=== PATIENT | male | born 1930 | race Caucasian/White ===

== ENCOUNTER 2017-10-03 08:39 | Emergency (ER) | payer OTHER, MEDICARE ==
[~2017-10-03] VITALS: Ht 182.9 cm; Wt 91.1 kg
[~2017-10-03 08:39] MED LIST: ACT30 PO; ASPI-435 PO; CYAN100020 PO; GLC850 PO; HYDR-5688 PO; MAGN1TAB41 PO; NTRGSLP4 SL; SENNTAB23 PO; TAMS0.4C38 PO; Vitamin B12 IM; ZCRT/40 PO; [UNRECOGNIZED DRUG - REMARK] PO
[2017-10-03 08:49] VITALS: TEMP 36.7; Ht 182.9 cm; Wt 91.1 kg
[2017-10-03] MEDS ORDERED: SODIUM CHLORIDE 0.9% 500ML 500 ML IV STA (08:58)
--- NOTE | 2017-10-03 09:03 | EMERGENCY ROOM VISIT NOTE ---
History Report prepared by Lex: Eneida Calvert Under the Supervision of: Dr. Antoni Fuller M.D. First contact with patient: 08:44 Chief Complaint: HEMATURIA Stated Complaint: HEAMTURIA History of Present Illness The patient is an 87 year old male who presents to the Emergency Room with complaints of persistent hematuria. He was brought to the ED via EMS from [facility] [place] in [facility]. Per EMS, he has a history of dementia and complained of abdomen and groin pain upon EMS arrival. He denies these complaints in the ED but states he has low back pain. EMS [facility] 2x for UTI and hematruia symptoms over the past few weeks and is currently being treated for a UTI. He has a history of prostate cancer in 2010 and per nursing at [facility], was pulling on his Mcneil overnight as he has a history of dementia. The patient has an upcoming appointment with Dr. Rachel of [facility]. The patient states he cannot remember how long the Mcneil has been in place. He denies any recent fevers, chills, cough or congestion. 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 A total of ten systems were reviewed and were otherwise negative. Past Medical & Surgical Medical Problems: (1) Acid reflux (2) B12 deficiency anemia (3) Diabetes mellitus, type 2 (4) Hypercholesterolemia (5) Memory loss (6) Prostate cancer Surgical Problems: (1) H/O cervical spine surgery (2) H/O right inguinal hernia repair (3) History of lumbar surgery (4) History of tonsillectomy and adenoidectomy Social History Smoking Status: Former Smoker Alcohol Use: none Drug Use: none Marital Status: Housing Status: longterm Occupation Status: retired Current/Historical Medications Scheduled Aspirin (Aspirin 81), 81 MG PO DAILY Cefuroxime Axetil (Ceftin), 250 MG PO BID Cyanocobalamin (Vitamin B12), 1,000 MCG PO DAILY Fentanyl (Fentanyl), 12 MG TD [id number] Finasteride (Proscar), 5 MG PO DAILY Lorazepam (Ativan), 0.5 MG PO BID Magnesium Oxide (Magnesium), 400 MG PO DAILY Memantine (Namenda), 10 MG PO BID Metformin HCl (Metformin HCl), 850 MG PO BID Pioglitazone (Actos), 30 MG PO DAILY Quetiapine Fumarate (Seroquel), 12.5 MG PO QPM Rivastigmine Tartrate (Rivastigmine Tartrate), 6 MG PO BID Simvastatin (Zocor), 40 MG PO HS Tamsulosin Hcl (Flomax), 0.4 MG PO DAILY Scheduled PRN Carboxymethylcellulose Sodium (Refresh), 1 DROP OP UD PRN for DRYNESS Hydrocodone/Acetaminophen 5MG/325MG ([place] 5MG/325MG), 1 TABLET PO Q4H PRN for Pain Nitroglycerin (Nitrostat), 1 TAB SL UD PRN for CHEST PAIN Triamcinolone Acet (Aristocort 0.1%), 1 APPLN TOP BID PRN for ITCHING Allergies Coded Allergies: Amoxicillin (Unverified Allergy, Unknown, nausea, 10/03/17) Clavulanic Acid (Unverified Allergy, Unknown, nausea, 10/03/17) Donepezil (Unverified Allergy, Unknown, , 10/03/17) Esomeprazole (Unverified Allergy, Unknown, , 10/03/17) Lovastatin (Unverified Allergy, Unknown, myalgia, 10/03/17) Pollen Extract (Unverified Allergy, Unknown, wheezing, 10/03/17) Rosuvastatin (Unverified Allergy, Unknown, myalgia, 10/03/17) Physical Exam Vital Signs Date Time Temp Pulse Resp B/P (MAP) Pulse Ox O2 Delivery O2 Flow Rate FiO2 10/03/17 13:26 75 18 150/75 94 10/03/17 11:30 84 18 160/73 96 Room Air 10/03/17 09:57 90 18 138/78 95 Room Air 10/03/17 09:09 85 10/03/17 08:49 36.7 83 18 162/76 97 Room Air Physical Exam GENERAL: Awake, alert, pleasantly demented, in no distress HENT: Normocephalic, atraumatic. Oropharynx unremarkable. Dry mucous membranes. EYES: Normal conjunctiva. Sclera non-icteric. NECK: Supple. No nuchal rigidity. FROM. No JVD. RESPIRATORY: Clear to auscultation. CARDIAC: Regular rate, normal rhythm. Extremities warm and well perfused. Pulses equal. ABDOMEN: Soft, non-distended. No tenderness to palpation. No rebound or guarding. No masses. : Indwelling Mcneil catheter draining light red urine output. RECTAL: Deferred. MUSCULOSKELETAL: Chest examination reveals no tenderness. The back is symmetrical on inspection without obvious abnormality. There is no CVA tenderness to palpation. No joint edema. LOWER EXTREMITIES: Calves are equal size bilaterally and non-tender. No edema. No discoloration. NEURO: Normal sensorium. No sensory or motor deficits noted. SKIN: No rash or jaundice noted. Medical Decision & Procedures ER Provider Diagnostic Interpretation: Radiology results as stated below per my review and radiologist interpretation: CT OF THE ABDOMEN AND PELVIS WITH CONTRAST CLINICAL HISTORY: Hematuria. COMPARISON STUDY: None. TECHNIQUE: Following IV administration of 93 mL of Optiray-320, axial images of the abdomen and pelvis were obtained from the lung bases to the proximal femurs. Images were reviewed in the axial, sagittal, and coronal planes. IV contrast was administered without complication. A dose lowering technique was utilized adhering to the principles of ALARA. CT DOSE: 524.14 mGy.cm FINDINGS: Visualized portions of the lower chest demonstrate mild cardiomegaly. The liver, spleen, adrenal glands are unremarkable. There is mild renal cortical thinning. There is no hydronephrosis. A Mcneil balloon is present within the bladder which is classic. Bladder wall thickening is accentuated given collapse. There is a possible 2 mm left renal calculus. This exam is compromised by motion artifact. No ureteral calculi are identified. Note is made of a 1.9 cm cystic lesion within the pancreatic neck. There may be an adjacent smaller 9 mm cystic lesion is well. There is no pancreatic ductal or biliary ductal dilatation. No enlarged abdominal or pelvic lymph nodes are present. There is no evidence for a bowel obstruction. There is mild perirectal infiltration, a nonspecific finding. The appendix is normal. No suspicious osseous lesions are present. Fat-containing bilateral inguinal hernias are noted. Sensitivity for detection of urothelial lesions is diminished on this unenhanced study. Brachytherapy seeds within the prostate are noted. IMPRESSION: 1. Mild bladder wall thickening which is accentuated by underdistention no hydronephrosis. 2. Possible 2 mm left renal calculus. Study compromised by motion artifact. No ureteral calculi. 3. Bilobed cystic lesion within the pancreatic neck. This is indeterminate but favors a side branch IPMN. This could be correlated with prior imaging studies if available. If not available, a follow-up pancreatic protocol CT in 6 months is recommended. 4. No bowel obstruction. 5. Mild perirectal infiltration, a nonspecific finding. Electronically signed by: Hal Jaquez M.D. 10/03/2017 10:56 AM Laboratory Results 10/03/17 09:50 Red Blood Count 2.87, Mean Corpuscular Volume 105.2, Mean Corpuscular Hemoglobin 34.5, Mean Corpuscular Hemoglobin Concent 32.8, Mean Platelet Volume 8.1, Neutrophils (%) (Auto) 76.2, Lymphocytes (%) (Auto) 15.4, Monocytes (%) ( Auto) 5.6, Eosinophils (%) (Auto) 2.6, Basophils (%) (Auto) 0.1, Neutrophils # ( Auto) 5.20, Lymphocytes # (Auto) 1.05, Monocytes # (Auto) 0.38, Eosinophils # ( Auto) 0.18, Basophils # (Auto) 0.01 10/03/17 09:19 Test 10/03/17 09:19 10/03/17 09:30 10/03/17 09:50 Anion Gap 7.0 mmol/L (3-11) Est Creatinine Clear Calc Drug Dose 64.0 ml/min Estimated GFR () 88.1 Estimated GFR (Non- 76.0 BUN/Creatinine Ratio 17.8 (10-20) Calcium Level 8.7 mg/dl (8.5-10.1) Total Bilirubin 0.4 mg/dl (0.2-1) Direct Bilirubin 0.1 mg/dl (0-0.2) Aspartate Amino Transf (AST/SGOT) 34 U/L (15-37) Alanine Aminotransferase (ALT/SGPT) 26 U/L (12-78) Alkaline Phosphatase 94 U/L (45-117) Total Protein 6.8 gm/dl (6.4-8.2) Albumin 2.9 gm/dl (3.4-5.0) Lipase 73 U/L (73-393) Urine Color ORANGE Urine Appearance CLEAR (CLEAR) Urine pH >= 9.0 (4.5-7.5) Urine Specific [place] 1.011 (1.000-1.030) Urine Protein 2+ (NEG) Urine Glucose (UA) NEG (NEG) Urine Ketones NEG (NEG) Urine Occult Blood 3+ (NEG) Urine Nitrite NEG (NEG) Urine Bilirubin NEG (NEG) Urine Urobilinogen NEG (NEG) Urine Leukocyte Esterase SMALL (NEG) Urine WBC (Auto) 5-10 /hpf (0-5) Urine RBC (Auto) >30 /hpf (0-4) Urine Hyaline Casts (Auto) /lpf (0-5) Urine Epithelial Cells (Auto) 5-10 /lpf (0-5) Urine Bacteria (Auto) NEG (NEG) Urine Pathogenic Casts /lpf (0) White Blood Count 6.83 K/uL (4.8-10.8) Red Blood Count 2.87 M/uL (4.7-6.1) Hemoglobin 9.9 g/dL (14.0-18.0) Hematocrit 30.2 % (42-52) Mean Corpuscular Volume 105.2 fL (80-100) Mean Corpuscular Hemoglobin 34.5 pg (25-34) Mean Corpuscular Hemoglobin Concent 32.8 g/dl (32-36) Platelet Count 203 K/uL (130-400) Mean Platelet Volume 8.1 fL (7.4-10.4) Neutrophils (%) (Auto) 76.2 % Lymphocytes (%) (Auto) 15.4 % Monocytes (%) (Auto) 5.6 % Eosinophils (%) (Auto) 2.6 % Basophils (%) (Auto) 0.1 % Neutrophils # (Auto) 5.20 K/uL (1.4-6.5) Lymphocytes # (Auto) 1.05 K/uL (1.2-3.4) Monocytes # (Auto) 0.38 K/uL (0.11-0.59) Eosinophils # (Auto) 0.18 K/uL (0-0.5) Basophils # (Auto) 0.01 K/uL (0-0.2) RDW Standard Deviation 54.4 fL (36.4-46.3) RDW Coefficient of Variation 14.3 % (11.5-14.5) Immature Granulocyte % (Auto) 0.1 % Immature Granulocyte # (Auto) 0.01 K/uL (0.00-0.02) Prothrombin Time 11.0 SECONDS (9.0-12.0) Prothromb Time International Ratio 1.0 (0.9-1.1) Activated Partial Thromboplast Time 27.1 SECONDS (21.0-31.0) Partial Thromboplastin Ratio 1.0 Laboratory results reviewed by me Medications Administered Medications (Trade) Dose Ordered Sig/Chucho Route Start Time Stop Time Status Last Admin Dose Admin Sodium Chloride 500 ml @ 999 mls/hr Q31M STAT IV 10/03/17 08:58 10/03/17 09:28 DC 10/03/17 09:52 999 MLS/HR ED Course 0854: The patient was evaluated in room B2. A complete history and physical exam was performed. 1145: I reevaluated the patient. I spoke extensively to him and his about his results so far. I discussed his discharge instructions and he and his family verbalized complete understanding and agreement. Medical Decision I reviewed the patient's past medical history, medications, and the nursing notes as described above. The patient's presentation and history were concerning for UTI, renal stone, malignancy, and trauma among others The patient is an 87 y/o gentleman with a pmhx of prostate cancer and dementia presents to the emergency department with persistent hematuria that has been ongoing for the past several weeks per HPI. Of note, further hx obtained from at bedside and the patient was initially seen several weeks ago for urinary retention and had a mcneil catheter placed. Several days later the patient began to have hematuria. Subsequently had been admitted to [facility] presumably for CBI for clots that may have been clogging his mcneil. He was followed by urology through [facility] and was treated with Ceftin for possible urinary infection as etiology. Of note, during this period the patient was placed in SNF and has several episodes where he has in advertently pulled his mcneil catheter. On arrival the patient is in NAD, AFVSS. Mcneil with light red urine output. Labs unremarkable with H/H 9.9/30.2 (although prior values not available). BMP unremarkable. UA with WBCs and epithelial cells from indwelling mcneil. Patient is already on Ceftin so will continue this. CT abd/ pel negative for acute findings. Incidental pancreas findings of unclear significance. Of note, family was not happy with their care with their urologist and have arrange and appointment with Dr. Rachel on Oct 14. Given reassuring labs, imaging, and exam unlikely to have emergent process at this time and it is reasonable to continue with plan for outpatient urology evaluation and management. Given no mcneil obstruction at this time no indication for CBI. Findings (including CT incidental finding) and plan for follow-up reviewed with patient, and daughter. Agreeable and d/c'd per discharge instructions. Medication Reconcilliation Current Medication List: was personally reviewed by me Blood Pressure Screening Patient's blood pressure: Elevated blood pressure Blood pressure disposition: Referred to PCP Impression Primary Impression: Hematuria Scribe Attestation 0854: The patient was evaluated in room B2. A complete history and physical exam was performed. Departure Information Dispostion Home / Self-Care Referrals Enoc Coburn M.D. (PCP) Moo Rachel MD, Urology Patient Instructions ED Hematuria, Hematuria Poss Causes, [facility] Additional Instructions Please follow up with your urologist, Dr. Rachel, as scheduled for re- evaluation. The exact cause of the blood in your urine unclear at this time however the recent several episodes of displacement are likely to provoke bleeding and attempts should be made to prevent this in the future. Otherwise, your exam, EKG, lab results, and CT scan did not show signs of an emergent condition at this time. Continue your current medications as prescribed. Drink plenty of fluids to ensure hydration. Of note, your CT scan demonstrated an incidental finding in your pancreas that should be followed up with repeat imaging in the future. Return to the emergency department for worsening symptoms as described in the accompanying instructions. CT OF THE ABDOMEN AND PELVIS WITH CONTRAST CLINICAL HISTORY: Hematuria. COMPARISON STUDY: None. TECHNIQUE: Following IV administration of 93 mL of Optiray-320, axial images of the abdomen and pelvis were obtained from the lung bases to the proximal femurs. Images were reviewed in the axial, sagittal, and coronal planes. IV contrast was administered without complication. A dose lowering technique was utilized adhering to the principles of ALARA. CT DOSE: 524.14 mGy.cm FINDINGS: Visualized portions of the lower chest demonstrate mild cardiomegaly. The liver, spleen, adrenal glands are unremarkable. There is mild renal cortical thinning. There is no hydronephrosis. A Mcneil balloon is present within the bladder which is classic. Bladder wall thickening is accentuated given collapse. There is a possible 2 mm left renal calculus. This exam is compromised by motion artifact. No ureteral calculi are identified. Note is made of a 1.9 cm cystic lesion within the pancreatic neck. There may be an adjacent smaller 9 mm cystic lesion is well. There is no pancreatic ductal or biliary ductal dilatation. No enlarged abdominal or pelvic lymph nodes are present. There is no evidence for a bowel obstruction. There is mild perirectal infiltration, a nonspecific finding. The appendix is normal. No suspicious osseous lesions are present. Fat-containing bilateral inguinal hernias are noted. Sensitivity for detection of urothelial lesions is diminished on this unenhanced study. Brachytherapy seeds within the prostate are noted.
[2017-10-03 09:51] LABS: ALBUMIN 2.9 gm/dl (3.4-5.0); CALCIUM 8.7 mg/dl (8.5-10.1); CREATININE 0.91 mg/dl (0.60-1.40); POTASSIUM 3.6 mmol/L (3.5-5.1)
[2017-10-03 09:54] LABS: TOTAL PROTEIN 6.8 gm/dl (6.4-8.2)
[2017-10-03 09:59] LABS: BASO % 0.1 %; BASO ABS # 0.01 K/uL (0-0.2); EOS % 2.6 %; EOS ABS # 0.18 K/uL (0-0.5); HEMATOCRIT 30.2 % (42-52); HEMOGLOBIN 9.9 g/dL (14.0-18.0); IG# 0.01 K/uL (0.00-0.02); LYMPH % 15.4 %; LYMPH ABS # 1.05 K/uL (1.2-3.4); MEAN CELL VOLUME 105.2 fL (80-100); MEAN CORPUSCULAR HEMOGLOBIN 34.5 pg (25-34); MEAN CORPUSCULAR HGB CONC 32.8 g/dl (32-36); MEAN PLATELET VOLUME 8.1 fL (7.4-10.4); MONO % 5.6 %; MONO ABS # 0.38 K/uL (0.11-0.59); NEUT % 76.2 %; PLATELET COUNT 203 K/uL (130-400); RED CELL DISTRIBUTION WIDTH CV 14.3 % (11.5-14.5); RED CELL DISTRIBUTION WIDTH SD 54.4 fL (36.4-46.3); WHITE BLOOD COUNT 6.83 K/uL (4.8-10.8)
[2017-10-03] MEDS ORDERED: OPTIRAY 320 IV PRN (10:15)
[2017-10-03 10:27] LABS: PTT PATIENT 27.1 SECONDS (21.0-31.0)
--- NOTE | 2017-10-03 10:57 | DIAGNOSTIC IMAGING REPORT ---
CT OF THE ABDOMEN AND PELVIS WITH CONTRAST CLINICAL HISTORY: Hematuria. COMPARISON STUDY: None. TECHNIQUE: Following IV administration of 93 mL of Optiray-320, axial images of the abdomen and pelvis were obtained from the lung bases to the proximal femurs. Images were reviewed in the axial, sagittal, and coronal planes. IV contrast was administered without complication. A dose lowering technique was utilized adhering to the principles of ALARA. CT DOSE: 524.14 mGy.cm FINDINGS: Visualized portions of the lower chest demonstrate mild cardiomegaly. The liver, spleen, adrenal glands are unremarkable. There is mild renal cortical thinning. There is no hydronephrosis. A Dey balloon is present within the bladder which is classic. Bladder wall thickening is accentuated given collapse. There is a possible 2 mm left renal calculus. This exam is compromised by motion artifact. No ureteral calculi are identified. Note is made of a 1.9 cm cystic lesion within the pancreatic neck. There may be an adjacent smaller 9 mm cystic lesion is well. There is no pancreatic ductal or biliary ductal dilatation. No enlarged abdominal or pelvic lymph nodes are present. There is no evidence for a bowel obstruction. There is mild perirectal infiltration, a nonspecific finding. The appendix is normal. No suspicious osseous lesions are present. Fat-containing bilateral inguinal hernias are noted. Sensitivity for detection of urothelial lesions is diminished on this unenhanced study. Brachytherapy seeds within the prostate are noted. IMPRESSION: 1. Mild bladder wall thickening which is accentuated by underdistention no hydronephrosis. 2. Possible 2 mm left renal calculus. Study compromised by motion artifact. No ureteral calculi. 3. Bilobed cystic lesion within the pancreatic neck. This is indeterminate but favors a side branch IPMN. This could be correlated with prior imaging studies if available. If not available, a follow-up pancreatic protocol CT in 6 months is recommended. 4. No bowel obstruction. 5. Mild perirectal infiltration, a nonspecific finding. Electronically signed by: Hal Jaquez M.D. 10/03/2017 10:56 AM Dictated Date/Time: 10/03/2017 10:46 AM
[2017-10-03] MEDS ORDERED: RIVA6CAP4 PO (10:58)
[2017-10-03] MEDS ORDERED: TRMCR130WC TOP (10:58)
[2017-10-03] MEDS ORDERED: NMN10 PO (10:58)
[2017-10-03] MEDS ORDERED: DRGTP12 TD (10:58)
[2017-10-03] MEDS ORDERED: LORA-741 PO (10:58)
[2017-10-03] MEDS ORDERED: FINA5TAB PO (10:58)
[2017-10-03] MEDS ORDERED: CARB1SOL OP (10:58)
[2017-10-03] MEDS ORDERED: QUET1TAB30 PO (10:58)
[2017-10-03] MEDS ORDERED: CEFU250T15 PO (10:58)
[2017-10-03 13:26] VITALS: BP 150/75; PULSE 75; O2SAT 94
== END 2017-10-03 13:27 | disposition home or self-care (01) ==
LOC: EDBD 08:39 → C.EDB 08:41
DX: R31.9 Hematuria, unspecified (principal); Z85.46 Personal history of malignant neoplasm of prostate; F03.90 Unspecified dementia, unspecified severity, without behavioral disturbance, psychotic disturbance, mood disturbance, and anxiety; K21.9 Gastro-esophageal reflux disease without esophagitis; E11.9 Type 2 diabetes mellitus without complications; E78.00 Pure hypercholesterolemia, unspecified; Z87.891 Personal history of nicotine dependence; Z79.82 Long term (current) use of aspirin; Z79.899 Other long term (current) drug therapy